=== PATIENT | female | born 1980 | race Caucasian/White ===

== ENCOUNTER → 2021-08-17 | Outpatient (CLI) | payer BC ==
--- NOTE | 2021-08-19 08:49 | MM ---
Reason for exam: screening (asymptomatic). Baseline mammogram. History: Patient is postmenopausal. Physical Findings: A clinical breast exam by your physician is recommended on an annual basis and results should be correlated with mammographic findings. MG Screening Mammo w CAD Bilateral CC and MLO view(s) were taken. The breast tissue is heterogeneously dense. This may lower the sensitivity of mammography. There is no discrete abnormality. ASSESSMENT: Benign, BI-RAD 2 RECOMMENDATION: Routine screening mammogram of both breasts in 1 year.
== END | disposition home or self-care (01) ==
LOC: RADMAMWWP 10:52
PROVIDERS: ATTEND Family Medicine
DX: Z12.31 Encounter for screening mammogram for malignant neoplasm of breast (principal); Z78.0 Asymptomatic menopausal state
CPT/HCPCS: 77067

== ENCOUNTER 2021-12-19 10:02 | Emergency (ER) | payer BC ==
[2021-12-19 10:08] VITALS: RESP 18; TEMP 97.9
[2021-12-19] MEDS ORDERED: DEXAMETHASONE SOD PHOSPHATE 10 MG/ML 1 ML VIAL IM STA (10:19)
[2021-12-19 10:47] LABS: Basophils # (A) 0.1 k/uL (0-0.2); Basophils % (A) 1 %; Eosinophils % (A) 1 %; HCT 39.1 % (34.0-46.0); HGB 12.8 gm/dL (11.4-16.0); Lymphocytes # (A) 2.8 k/uL (1.0-4.8); Lymphocytes % (A) 59 %; MCH 31.4 pg (25.0-35.0); MCHC 32.8 g/dL (31.0-37.0); MCV 95.7 fL (80.0-100.0); Mean Platelet Volume 8.4; Monocytes # (A) 0.2 k/uL (0-1.0); Monocytes % (A) 4 %; Neutrophils # (A) 1.5 k/uL (1.3-7.7); Neutrophils % (A) 32 %; Platelet Count 216 k/uL (150-450); RBC 4.08 m/uL (3.80-5.40); RDW 11.8 % (11.5-15.5); WBC 4.8 k/uL (3.8-10.6)
--- NOTE | 2021-12-19 10:52 | ED ---
Extremity Problem HPI - General Chief complaint: Extremity Problem,Nontraumatic Stated complaint: Covid+, Arm Numb Time Seen by Provider: 12/19/21 10:09 Source: patient Mode of arrival: ambulatory Limitations: no limitations - History of Present Illness Initial comments: Patient is a 41-year-old female presenting with chief complaint of right hand and forearm numbness and tingling. Patient states this has been ongoing for the last few days. Patient tested positive for Covid 4 days ago. Patient states that she has constant numbness or tingling of the right forearm and hand, this does not change with position. She denies any trauma or injury. Patient currently works in a factory, does admit to some repetitive motions. She denies any weakness. Denies any neck or upper arm pain. Denies any swelling. No chest pain, shortness of breath, fever, nausea, vomiting, abdominal pain, diarrhea, hematochezia, melena, dysuria, hematuria. - Related Data Home Medications Medication Instructions Recorded Confirmed Acetaminophen Tab [Tylenol Tab] 1,000 mg PO Q6HR PRN 12/19/21 12/19/21 FLUoxetine HCL [PROzac] 40 mg PO DAILY 12/19/21 12/19/21 Ibuprofen [Motrin Ib] 400 mg PO Q8H PRN 12/19/21 12/19/21 Loratadine [Claritin] 10 mg PO DAILY 12/19/21 12/19/21 busPIRone HCL [Buspar] 7.5 mg PO BID 12/19/21 12/19/21 traZODone HCL [Desyrel] 50 - 100 mg PO HS PRN 12/19/21 12/19/21 Previous Rx's Medication Instructions Recorded methylPREDNISolone Dose Pack 4 mg PO DIRECTED #1 packet 12/19/21 [Medrol Dose Pack] Allergies Allergy/AdvReac Type Severity Reaction Status Date / Time No Known Allergies Allergy Verified 12/19/21 11:07 Review of Systems ROS Statement: Those systems with pertinent positive or pertinent negative responses have been documented in the HPI. ROS Other: All systems not noted in ROS Statement are negative. Past Medical History History of Any Multi-Drug Resistant Organisms: None Reported Past Surgical History: Hysterectomy Past Psychological History: Anxiety, Depression Smoking Status: Current every day smoker Past Alcohol Use History: Occasional Past Drug Use History: None Reported General Exam Limitations: no limitations General appearance: alert, in no apparent distress Head exam: Present: atraumatic, normocephalic, normal inspection Eye exam: Present: normal appearance, EOMI. Absent: scleral icterus, periorbital swelling Neck exam: Present: normal inspection, full ROM Respiratory exam: Present: normal lung sounds bilaterally. Absent: respiratory distress, wheezes, rales, rhonchi, stridor Cardiovascular Exam: Present: regular rate, normal rhythm, normal heart sounds. Absent: systolic murmur, diastolic murmur, rubs, gallop, clicks Extremities exam: Present: normal inspection, full ROM, normal capillary refill. Absent: tenderness Right Shoulder Exam: Present: normal inspection, full ROM. Absent: tenderness, swelling Upper Arm exam: Present: normal inspection, full ROM. Absent: tenderness, swelling, deformity Elbow exam: Present: normal inspection, full ROM. Absent: tenderness, swelling, deformity Forearm Wrist exam: Present: normal inspection, full ROM. Absent: tenderness, swelling Hand Wrist exam: Present: normal inspection, full ROM. Absent: tenderness, swelling Vascular: Present: normal capillary refill, radial pulse (2+). Absent: vascular compromise Neurological exam: Present: alert, oriented X3, CN II-XII intact Psychiatric exam: Present: normal affect, normal mood Skin exam: Present: warm, dry, intact, normal color. Absent: rash Course Vital Signs 12/19/21 12/19/21 12/19/21 10:04 10:56 12:22 Temperature 97.9 F Pulse Rate 61 83 68 Respiratory 18 18 18 Rate Blood Pressure 142/87 122/86 113/80 O2 Sat by Pulse 97 95 98 Oximetry 12/19/21 12/19/21 13:14 13:17 Temperature Pulse Rate 60 62 Respiratory 16 18 Rate Blood Pressure 129/103 119/81 O2 Sat by Pulse 96 96 Oximetry Medical Decision Making - Medical Decision Making Patient is a 41-year-old female presenting with chief complaint of numbness and tingling starting from the left elbow all the way down to the fingers. This does not follow a nerve distribution pattern. No weakness or loss of range of motion. On examination I cannot provoke this sensation by compressing the nerves. She has full range of motion, strength, sensation at this time. Lab work is grossly negative. CT of the brain and cervical spine shows no acute process. X-ray of the forearm and elbow shows no acute process. Paresthesias will be treated with steroid pack. Follow-up with PCP. Report back to ER if any new or worsening symptoms. Discussed return parameters answered all questions. Patient conveyed verbal understanding and agreed to the plan. I discussed this case with my attending Dr. Pedroza. - Lab Data Result diagrams: 12/19/21 10:36 12/19/21 10:36 Lab Results 12/19/21 12/19/21 12/19/21 Range/Units 10:36 10:36 10:36 WBC 4.8 (3.8-10.6) k/uL RBC 4.08 (3.80-5.40) m/uL Hgb 12.8 (11.4-16.0) gm/dL Hct 39.1 (34.0-46.0) % MCV 95.7 (80.0-100.0) fL MCH 31.4 (25.0-35.0) pg MCHC 32.8 (31.0-37.0) g/dL RDW 11.8 (11.5-15.5) % Plt Count 216 (150-450) k/uL MPV 8.4 Neutrophils % 32 % Lymphocytes % 59 % Monocytes % 4 % Eosinophils % 1 % Basophils % 1 % Neutrophils # 1.5 (1.3-7.7) k/uL Lymphocytes # 2.8 (1.0-4.8) k/uL Monocytes # 0.2 (0-1.0) k/uL Eosinophils # 0.0 (0-0.7) k/uL Basophils # 0.1 (0-0.2) k/uL PT 10.3 (9.0-12.0) sec INR 0.9 (<1.2) APTT 23.6 (22.0-30.0) sec Sodium 140 (137-145) mmol/L Potassium 4.1 (3.5-5.1) mmol/L Chloride 106 (98-107) mmol/L Carbon Dioxide 25 (22-30) mmol/L Anion Gap 9 mmol/L BUN 8 (7-17) mg/dL Creatinine 0.52 (0.52-1.04) mg/dL Est GFR (CKD-EPI)AfAm >90 (>60 ml/min/1.73 sqM) Est GFR (CKD-EPI)NonAf >90 (>60 ml/min/1.73 sqM) Glucose 90 (74-99) mg/dL Calcium 8.9 (8.4-10.2) mg/dL Magnesium (1.6-2.3) mg/dL Total Bilirubin 0.4 (0.2-1.3) mg/dL AST 19 (14-36) U/L ALT 13 (4-34) U/L Alkaline Phosphatase 67 (38-126) U/L Total Protein 7.3 (6.3-8.2) g/dL Albumin 4.5 (3.5-5.0) g/dL 12/19/21 Range/Units 10:51 WBC (3.8-10.6) k/uL RBC (3.80-5.40) m/uL Hgb (11.4-16.0) gm/dL Hct (34.0-46.0) % MCV (80.0-100.0) fL MCH (25.0-35.0) pg MCHC (31.0-37.0) g/dL RDW (11.5-15.5) % Plt Count (150-450) k/uL MPV Neutrophils % % Lymphocytes % % Monocytes % % Eosinophils % % Basophils % % Neutrophils # (1.3-7.7) k/uL Lymphocytes # (1.0-4.8) k/uL Monocytes # (0-1.0) k/uL Eosinophils # (0-0.7) k/uL Basophils # (0-0.2) k/uL PT (9.0-12.0) sec INR (<1.2) APTT (22.0-30.0) sec Sodium (137-145) mmol/L Potassium (3.5-5.1) mmol/L Chloride (98-107) mmol/L Carbon Dioxide (22-30) mmol/L Anion Gap mmol/L BUN (7-17) mg/dL Creatinine (0.52-1.04) mg/dL Est GFR (CKD-EPI)AfAm (>60 ml/min/1.73 sqM) Est GFR (CKD-EPI)NonAf (>60 ml/min/1.73 sqM) Glucose (74-99) mg/dL Calcium (8.4-10.2) mg/dL Magnesium 1.9 (1.6-2.3) mg/dL Total Bilirubin (0.2-1.3) mg/dL AST (14-36) U/L ALT (4-34) U/L Alkaline Phosphatase (38-126) U/L Total Protein (6.3-8.2) g/dL Albumin (3.5-5.0) g/dL Disposition Clinical Impression: Paresthesia Disposition: HOME SELF-CARE Condition: Good Instructions (If sedation given, give patient instructions): Paresthesia (ED) Additional Instructions: Follow-up with PCP in one to 2 days. Report back to ER with any new or worsening symptoms. Take Motrin and Tylenol as needed for pain control. Take medication as prescribed. Prescriptions: methylPREDNISolone Dose Pack [Medrol Dose Pack] 4 mg PO DIRECTED #1 packet Is patient prescribed a controlled substance at d/c from ED?: No Referrals: Susanne Robles MD [Primary Care Provider] - 1-2 days Time of Disposition: 12:49
[2021-12-19 10:58] LABS: ALT 13 U/L (4-34); AST 19 U/L (14-36); African American GFR (CKD) >90 (>60 ml/min/1.73 sqM); Albumin 4.5 g/dL (3.5-5.0); Alkaline Phosphatase 67 U/L (38-126); Anion Gap 9 mmol/L; Blood Urea Nitrogen 8 mg/dL (7-17); Calcium 8.9 mg/dL (8.4-10.2); Carbon Dioxide 25 mmol/L (22-30); Chloride 106 mmol/L (98-107); Glucose 90 mg/dL (74-99); INR 0.9 (<1.2); Non-African American GFR(CKD) >90 (>60 ml/min/1.73 sqM); Partial Thromboplastin Time 23.6 sec (22.0-30.0); Potassium 4.1 mmol/L (3.5-5.1); Prothrombin Time 10.3 sec (9.0-12.0); Sodium 140 mmol/L (137-145); Total Bilirubin 0.4 mg/dL (0.2-1.3); Total Protein 7.3 g/dL (6.3-8.2)
--- NOTE | 2021-12-19 11:40 | CT ---
EXAMINATION TYPE: CT brain cspine wo con DATE OF EXAM: 12/19/2021 COMPARISON: None HISTORY: Right arm numbness and tingling CT DLP: 1312.1 mGycm Automated exposure control for dose reduction was used. TECHNIQUE: CT scan of the head and cervical spine are performed without contrast. FINDINGS: There is no acute intracranial hemorrhage, mass effect, or midline shift identified. The ventricles and sulci are within normal limits in size. The globes are intact and the visualized sin uses are remarkable for inflammatory change in the bilateral maxillary sinuses, ethmoid air cells. Sh e is edentulous. Cervical spine is visualized in its entirety from C1 through upper thoracic levels and demonstrates s atisfactory alignment without evidence of acute fracture or dislocation. Prevertebral soft tissue ap pears within normal limits. The C1-C2 articulation is unremarkable. Emphysematous changes are prese nt in the upper lobes of the lungs. IMPRESSION: 1. There is no acute fracture or dislocation evident in the cervical spine. 2. No acute intracranial hemorrhage, mass effect, or midline shift is seen.
[2021-12-19] MEDS ORDERED: ACETAMINOPHEN TAB 500 MG TAB PO STA (12:08)
--- NOTE | 2021-12-19 12:26 | XR ---
EXAMINATION TYPE: XR elbow complete RT, XR forearm RT DATE OF EXAM: 12/19/2021 CLINICAL HISTORY: Pain and numbness and tingling. TECHNIQUE: Frontal, lateral and oblique images of the right elbow are obtained. 2 views right forear m. COMPARISON: None FINDINGS: There is no acute fracture/dislocation evident in the right elbow. No abnormal fat pad si gns are seen. Right cubital peripheral IV noted. No acute fracture or dislocation in the right radius or ulna. Visualized right wrist joint appears wi thin normal limits. Overlying soft tissue is unremarkable. IMPRESSION: As above.
[2021-12-19 13:18] VITALS: BP 119/81; PULSE 62
== END 2021-12-19 13:20 | disposition home or self-care (01) ==
LOC: EC 10:02
DX: U07.1 COVID-19 (principal); R20.2 Paresthesia of skin; F41.9 Anxiety disorder, unspecified; F32.A Depression, unspecified; F17.200 Nicotine dependence, unspecified, uncomplicated; Z79.899 Other long term (current) drug therapy
CPT/HCPCS: 36415; 80053; 83735; 85025; 85610; 85730; 73080; 73090; 72125; 70450; 99284; 96372; J1100